=== PATIENT | male | born 1960 | race Caucasian/White ===

== ENCOUNTER 2017-04-23 04:57 | Inpatient (IN) | payer BC, OTHER ==
[2017-03-25 13:25] VITALS: BMI 40.0
--- NOTE | 2017-03-25 14:23 | PAT Medication Instructions ---
Service Date Mar 25, 2017. Current Home Medication List Amoxicillin (Amoxil), 4 CAP PO DIRECTED PRN for dental Aspirin (Aspirin Chewable), 81 MG PO QAM Diphenhydramine Hcl (Benadryl Allergy), 1 CAP PO HS Fish Oil ([place]-3), 1 CAP PO QAM Multiple Vitamins W/ Minerals (Centrum Silver Ultra Mens), 1 TAB PO QAM Simvastatin (Zocor), 20 MG PO QPM Tadalafil (Cialis), 1 TAB PO QAM Medication Instructions For Your Scheduled Surgery - Hold the following medications 2 weeks prior to surgery: Fish Oil ([place]-3), 1 CAP PO QAM -Continue as directed: Amoxicillin (Amoxil), 4 CAP PO DIRECTED PRN for dental - Hold the following medications the morning of surgery: Multiple Vitamins W/ Minerals (Centrum Silver Ultra Mens), 1 TAB PO QAM - Take the following medications the morning of surgery with a sip of water: Aspirin (Aspirin Chewable), 81 MG PO QAM Tadalafil (Cialis), 1 TAB PO QAM - Take the following medications as scheduled the night before surgery: Diphenhydramine Hcl (Benadryl Allergy), 1 CAP PO HS Simvastatin (Zocor), 20 MG PO QPM If you have any questions please call us at [phone] or [phone] or [phone]
--- NOTE | 2017-03-25 14:58 | DIAGNOSTIC IMAGING REPORT ---
CHEST PREADMISSION(PA/LAT) HISTORY: 56 years-old Male PAT preadmission exam. No acute chest complaints. Initial exam. COMPARISON: None available. TECHNIQUE: Frontal and lateral views of the chest. FINDINGS: Cardiac silhouette is upper limits of normal. There is no pneumothorax, pleural effusion or focal airspace consolidation. No overt pulmonary edema. The bones are grossly intact. IMPRESSION: No acute cardiopulmonary process. The above report was generated using voice recognition software. It may contain grammatical, syntax or spelling errors. Electronically signed by: Po Blank M.D. 03/25/2017 2:56 PM Dictated Date/Time: 03/25/2017 2:55 PM
[2017-03-25 15:11] LABS: BASO % 0.2 %; BASO ABS # 0.01 K/uL (0-0.2); COMPLETE YES; EOS % 1.8 %; HEMATOCRIT 44.4 % (42-52); IG% 0.4 %; LYMPH % 31.8 %; LYMPH ABS # 1.78 K/uL (1.2-3.4); MEAN CELL VOLUME 89.3 fL (80-100); MEAN CORPUSCULAR HGB CONC 33.6 g/dl (32-36); MEAN PLATELET VOLUME 8.6 fL (7.4-10.4); MONO % 8.8 %; PLATELET COUNT 206 K/uL (130-400); RED BLOOD COUNT 4.97 M/uL (4.7-6.1); WHITE BLOOD COUNT 5.59 K/uL (4.8-10.8)
[2017-03-25 15:20] LABS: PARTIAL THROMBOPLASTIN RATIO 1.1; PROTHROMBIN TIME (PATIENT) 10.8 SECONDS (9.0-12.0)
[2017-03-25 15:23] LABS: URINE APPEARANCE CLEAR (CLEAR); URINE BILIRUBIN NEG (NEG); URINE COLOR YELLOW; URINE NITRITE NEG (NEG); URINE SPECIFIC GRAVITY 1.016 (1.000-1.030); UROBILINOGEN NEG (NEG); ZZUR CULT IF INDIC CLEAN CATCH NO
[2017-03-25 15:25] LABS: MANUAL MICROSCOPIC REQUIRED? NO; REVIEW REQ? NO
[2017-03-25 15:36] LABS: BUN/CREATININE RATIO 14.6 (10-20); CREATININE 0.67 mg/dl (0.60-1.40); POTASSIUM 3.8 mmol/L (3.5-5.1)
[2017-03-26 05:54] LABS: ESTIMATED AVERAGE GLUCOSE 117 mg/dl; HA1C FLAG Normal (Normal)
--- NOTE | 2017-04-22 19:27 | HISTORY & PHYSICAL EXAMINATION ---
DATE OF ADMISSION: 04/23/2017 ADMISSION HISTORY AND PHYSICAL CHIEF COMPLAINT: Chronic left knee pain. HISTORY OF PRESENT ILLNESS: This is a 56-year-old male patient of Dr. Solo'inez complaining of chronic left knee pain, longstanding, now progressively getting worse. He has failed conservative treatment including intra-articular injections and anti-inflammatories. The patient has increased pain with weightbearing activities and his pain does interfere with his activities of daily living. PAST MEDICAL HISTORY: He was born with a congenital heart disease, heart murmur, heart valve problem, hypercholesterolemia, irregular heartbeat, sleep apnea with the use of CPAP, osteoarthritis, spine problems, neck problems, and obesity. SOCIAL HISTORY: Nonsmoker, nondrinker. FAMILY HISTORY: Noncontributory. REVIEW OF SYSTEMS: The patient complains of chronic left knee pain, otherwise denies any shortness of breath, chest pain, nausea, vomiting or any other joint complaints. PAST SURGICAL HISTORY: Shoulder surgery, knee surgery, back surgery. MEDICATIONS: Simvastatin 20 mg daily at bedtime, Cialis 5 mg daily as needed, aspirin 81 mg daily, amoxicillin only prophylactically for dental work, fish oil 1000 mg daily, Centrum multivitamin daily. ALLERGIES: OXYCODONE WHICH CAUSES puritis PHYSICAL EXAMINATION: GENERAL: Well-developed, well-nourished 56-year-old male in no acute distress. He is alert and oriented x3 and pleasant. HEENT: Normocephalic, atraumatic. Extraocular motions are intact. Pupils are equal and reactive to light. HEART: Regular rate and rhythm with a 1/6 murmur appreciated. LUNGS: Clear. ABDOMEN: Soft and nontender, bowel sounds are present. EXTREMITIES: Left knee reveals medial joint line tenderness with a varus deformity. He has crepitation and pain with passive range of motion. He has limited range of motion of 0-120 degrees. He has 5/5 strength. NEUROLOGIC: Neurovascularly, he is intact in his left lower extremity. DIAGNOSES: Left knee end-stage osteoarthritis. He has a congenital heart problem, heart murmur, heart valve problem, hypercholesterolemia, irregular heartbeat, sleep apnea with the use of CPAP, osteoarthritis, spine problems, neck problems, and obesity. PLAN: The patient was advised of his diagnosis. Indications, risks, benefits, and postop course have all been reviewed. The patient wishes to proceed with a left total knee arthroplasty. Necessary consent forms, preoperative testing and clearances will be obtained. [facility]
[~2017-04-23] VITALS: Ht 167.6 cm; Wt 111.7 kg
[2017-04-23] VITALS (10 sets, daily range): BP systolic 139–169; BP diastolic 74–100; PULSE 61–103; TEMP 36.5–36.8; O2SAT 92–99; Ht 167.6 cm; Wt 111.7 kg
[~2017-04-23 04:57] MED LIST: AMOX500C3 PO; ASPCH81X PO; DIPH25CA65 PO; MULT-618 PO; OMEG10007 PO; SIMV20TA2 PO; TADA5TAB11 PO
[2017-04-23] MEDS ORDERED: METOCLOPRAMIDE HCL 10 MG TAB PO SCH (06:00)
[2017-04-23] MEDS ORDERED: FAMOTIDINE 20 MG TAB PO SCH (06:00)
[2017-04-23] MEDS ORDERED: LACTATED RINGER'S 1000ML 1,000 ML IV SCH (06:00)
[2017-04-23] MEDS ORDERED: ROPIVACAINE 5MG/ML 30 ML 150 MG, BUPIVACAINE/EPINEPHR 0.5% MPF 30 ML, KETOROLAC TROMETH... INFIL SCH ×7 (06:00)
[2017-04-23] MEDS ORDERED: DEXAMETHASONE 4 MG TAB PO SCH (06:00)
[2017-04-23] MEDS ORDERED: GABAPENTIN 300 MG CAP PO SCH (06:00)
[2017-04-23] MEDS ORDERED: CeleBREX 200 MG CAP PO SCH (06:00)
[2017-04-23] MEDS ORDERED: LACTATED RINGER'S 1000ML IV SCH (06:00)
[2017-04-23] MEDS ORDERED: CEFAZOLIN 2000MG IV PUSH 10 ML IV SCH (06:00)
[2017-04-23] MEDS ORDERED: TRANEXAMIC ACID INJ 1,000 MG in SODIUM CHLORIDE 0.9% 100ML 100 ML IV SCH (06:00)
[2017-04-23] MEDS ORDERED: ACETAMINOPHEN 500 MG TAB PO SCH (06:00)
[2017-04-23] MEDS ORDERED: LACTATED RINGER'S 1000ML 500 ML IV ONE (06:00)
[2017-04-23] MEDS ORDERED: BUPIVACAINE 0.5 % 5 MG/1 ML PF 10ML VIAL ONE (06:12)
[2017-04-23] MEDS ORDERED: BUPIVACAINE 0.25% 30 ML VIAL ONE (06:12)
[2017-04-23] MEDS ORDERED: PROMETHAZINE HCL INJ 12.5 MG in SODIUM CHLORIDE 0.9% 50ML 50 ML IV PRN (06:15)
[2017-04-23] MEDS ORDERED: ATROPINE SULFATE 0.1 MG/ML 5ML SYR IV PRN (06:15)
[2017-04-23] MEDS ORDERED: EpHEDrine SULFATE INJ 50 MG/ML AMP IV PRN (06:15)
[2017-04-23] MEDS ORDERED: ONDANSETRON INJ 2 MG/ML 2 ML VIAL IV PRN ×2 (06:15→09:30)
[2017-04-23] MEDS ORDERED: HYDROmorphone INJ 1 MG/ML SYR IV PRN (06:15)
[2017-04-23] MEDS ORDERED: FENTANYL CITRATE INJ 50 MCG/1 ML 2 ML VIAL IV PRN (06:15)
[2017-04-23] MEDS ORDERED: POVIDONE-IODINE OP SOLN 30 ML BTL ONE (06:35)
[2017-04-23] MEDS ORDERED: BACITRACIN 50000 UNIT VIAL ONE (06:35)
[2017-04-23] MEDS ORDERED: ORTHO JOINT ANESTHETIC ONE (06:35)
[2017-04-23] MEDS ORDERED: MIDAZOLAM HCL 1 MG/ML 2ML VIAL ONE (06:42)
--- NOTE | 2017-04-23 06:59 | History & Physical Bridge Note ---
H&P Re-Evaluation Bridge Note: I have examined the patient, reviewed the History & Physical and in the interval since the performance of the History & Physical I have noted the following changes of clinical significance: No changes noted
[2017-04-23] MEDS ORDERED: LIDOCAINE HCL 2% 2 ML VIAL (20MG/ML) ONE (08:44)
[2017-04-23] MEDS ORDERED: PROPOFOL IV EMULSION 10 MG/ML 20 ML VIAL IV ONE (08:44)
--- NOTE | 2017-04-23 09:01 | [facility] Post Operative Brief Note ---
Immediate Operative Summary Operative Date Apr 23, 2017. Pre-Operative Diagnosis Left Knee Degenerative Joint Disease Post-Operative Diagnosis Left Knee Degenerative Joint Disease Procedure(s) Performed Left Total Knee Arthroplasty Surgeon Dr. Solo Billing Rep Surgeon(s) SAM Packer Estimated Blood Loss 5 ml Findings djd oa varus grade 4 medial grade 3 medial patella Specimens A. Left Knee Bone and Tissue Drains 2 hemovac Anesthesia spinal sedation adductor block orthomix Complication(s) None Disposition Recovery Room / PACU
[2017-04-23] MEDS ORDERED: MoRPHine SULFATE 2 MG/ML CARP IV PRN (09:30)
[2017-04-23] MEDS ORDERED: ALUMINUM/MAGNESIUM/SIMETH (MAALOX MAX) 30 ML UDC PO PRN (09:30)
[2017-04-23] MEDS ORDERED: TRAMADOL HCL 50 MG TAB PO PRN (09:30)
[2017-04-23] MEDS ORDERED: TAMSULOSIN HCL 0.4 MG CAP PO PRN (09:30)
[2017-04-23] MEDS ORDERED: MAGNESIUM HYDROXIDE SUSP 30 ML UDC PO PRN (09:30)
[2017-04-23] MEDS ORDERED: BISACODYL 10 MG SUPP PR PRN (09:30)
--- NOTE | 2017-04-23 09:59 | Anesthesiology Progress Note ---
Anesthesia Post Op Note Date & Time Apr 23, 2017 at 09:59 Vital Signs Pain Intensity: 0 Vital Signs Past 12 Hours Date Time Temp Pulse Resp B/P (MAP) Pulse Ox O2 Delivery O2 Flow Rate FiO2 04/23/17 09:50 66 16 144/74 94 Nasal Cannula 2 04/23/17 09:40 70 17 143/78 95 Nasal Cannula 2 04/23/17 09:30 72 22 132/76 99 Oxymask 10 04/23/17 09:24 36.9 70 16 125/70 98 Oxymask 10 04/23/17 05:46 36.5 65 20 166/81 95 Room Air Notes Mental Status: alert / awake / arousable, participated in evaluation Pt Amnestic to Procedure: Yes Nausea / Vomiting: adequately controlled Pain: adequately controlled Airway Patency, RR, SpO2: stable & adequate BP & HR: stable & adequate Hydration State: stable & adequate Neuraxial Anesthesia: was administered, sensory block is resolving Anesthetic Complications: no major complications apparent Doing well. VSS. Pain controlled. Ready for d/c from PACU
--- NOTE | 2017-04-23 10:01 | DIAGNOSTIC IMAGING REPORT ---
TWO VIEWS LEFT KNEE CLINICAL HISTORY: Postoperative examination. FINDINGS: AP and crosstable lateral portable views of the left knee are obtained. A left knee arthroplasty is in near anatomic alignment. There has been undersurface remodeling of the patella. No acute fracture is seen. There are expected postoperative changes around the knee including skin clips, a surgical drain, soft tissue edema, and subcutaneous gas. IMPRESSION: Expected postoperative changes status post left knee arthroplasty. No acute fracture is seen. Electronically signed by: Amado Schuler M.D. 04/23/2017 10:00 AM Dictated Date/Time: 04/23/2017 10:00 AM
[2017-04-23] MEDS ORDERED: MoRPHine SULFATE 4 MG/ML 1 ML CARP\\VIAL IV PRN (10:45)
[2017-04-23] MEDS ORDERED: MoRPHine SULFATE 10 MG/ML CARP/VIAL IV PRN (10:45)
[2017-04-23] MEDS: D5W AND 1/2NSS + 20MEQ KCL 1,000 ML IV SCH ×2 (11:09→20:51)
[2017-04-23] MEDS: KETOROLAC TROMETHAMINE 30 MG/ML VIAL IV. SCH ×2 (11:40→18:41)
--- NOTE | 2017-04-23 11:40 | Medical Consult ---
Consultation Date of Consultation: Apr 23, 2017. Attending Physician: Noé Solo M.D. Reason for Consultation: Post Op Medical Management History of Present Illness 56 year old male who is s/p left TKA today by Dr. Solo. Patient reports increasing knee pain for the past several years. He failed outpatient conservative measures and therefore presented for the planned procedure today. Post operatively the patient is doing well. He reports his pain is well controlled. He reports some mild residual tingling to the BLLE. He denies chest pain and shortness of breath. No lightheadedness or dizziness. He denies abdominal pain and nausea. He reports he has no voided yet since surgery. Past Medical/Surgical History Medical Problems: (1) Aortic regurgitation Status: Chronic (2) HLD (hyperlipidemia) Status: Chronic (3) PEARL on CPAP Status: Chronic Surgical Problems: (1) H/O arthroscopic knee surgery Status: Chronic (2) H/O laminectomy Status: Chronic (3) H/O vasectomy Status: Chronic (4) History of hemorrhoidectomy Status: Chronic (5) S/P rotator cuff repair Status: Chronic Family History Diabetes mellitus FATHER FH: prostate cancer FATHER Social History Smoking Status: Never Smoker Alcohol Use: ~ 5 drinks / week Marital Status: Occupation Status: employed Allergies Coded Allergies: Oxycodone (Verified Adverse Reaction, Unknown, hallucinations, 04/23/17) Home Medications Benadryl Allergy (Diphenhydramine Hcl) 25 Mg Cap 1 Cap PO HS 30 Days Centrum Silver Ultra Mens (Multiple Vitamins W/ Minerals) 1 Tab Tab 1 Tab PO QAM [place]-3 (Fish Oil) 1 Ea Cap 1 Cap PO QAM Amoxil (Amoxicillin) 500 Mg Cap 4 Cap PO DIRECTED PRN 10 Days Aspirin Chewable (Aspirin) 81 Mg Chew 81 Mg PO QAM Cialis (Tadalafil) 5 Mg Tab 1 Tab PO QAM 30 Days Zocor (Simvastatin) 20 Mg Tab 20 Mg PO QPM Current Inpatient Medications Current Inpatient Medications Medications (Trade) Dose Ordered Sig/Jo Route Start Time Stop Time Status Last Admin Dose Admin Simvastatin (Zocor Tab) 20 mg QPM PO 04/23/17 21:00 05/23/17 20:59 Morphine Sulfate (MoRPHine SULFATE INJ) 2 mg Q4HWA PRN IV 04/23/17 09:30 05/07/17 09:29 Potassium Chloride/Dextrose/ Sod Cl 1,000 ml @ 100 mls/hr Q10H IV 04/23/17 11:00 04/24/17 09:28 04/23/17 11:09 100 MLS/HR Cefazolin Sodium 2000 mg/Syringe 10 ml @ 2.5 mls/min Q8H IV 04/23/17 16:00 04/24/17 00:03 Ketorolac Tromethamine (Toradol Inj) 30 mg Q6H IV. 04/23/17 12:00 04/24/17 09:29 Celecoxib (CeleBREX CAP) 200 mg BID PO 04/24/17 21:00 05/24/17 20:59 Acetaminophen/ Hydrocodone Bitart ([place] 5/325 Tab) 1 TABLET FOR PAIN RATING... Q4H PRN PO 04/23/17 09:30 05/07/17 09:29 Magnesium Hydroxide (Milk Of Magnesia Susp) 30 ml Q6H PRN PO 04/23/17 09:30 05/23/17 09:29 Bisacodyl (Dulcolax Supp) 10 mg DAILY PRN NE 04/23/17 09:30 05/23/17 09:29 Senna (Senokot Tab) 17.2 mg HS PO 04/23/17 21:00 05/23/17 20:59 Docusate Sodium (coLACE CAP) 100 mg BID PO 04/23/17 21:00 05/23/17 20:59 Al Hydrox/Mg Hydrox/Simethicone (Maalox Max Susp) 15 ml Q4H PRN PO 04/23/17 09:30 05/23/17 09:29 Multivitamins (Multivitamin Tab) 1 tab QAM PO 04/24/17 09:00 05/24/17 08:59 Ondansetron HCl (Zofran Inj) 4 mg Q6H PRN IV 04/23/17 09:30 05/23/17 09:29 Ferrous Gluconate (Ferrous Gluconate Tab) 324 mg TIDM PO 04/23/17 12:30 05/23/17 12:29 Pantoprazole Sodium (Protonix Tab) 40 mg QAM PO 04/24/17 09:00 05/24/17 08:59 Tamsulosin HCl (Flomax Cap) 0.4 mg QAM PRN PO 04/23/17 09:30 05/23/17 09:29 Tramadol HCl (Ultram Tab) 1 tablet for pain rating... Q4H PRN PO 04/23/17 09:30 05/23/17 09:29 Aspirin (Ecotrin Tab) 81 mg BID PO 04/23/17 21:00 05/23/17 20:59 Morphine Sulfate (MoRPHine SULFATE INJ) 4 mg Q4HWA PRN IV 04/23/17 10:45 05/07/17 10:44 Morphine Sulfate (MoRPHine SULFATE INJ) 6 mg Q4HWA PRN IV 04/23/17 10:45 05/07/17 10:44 Review of Systems ROS per HPI, all other systems reviewed and negative Physical Exam Date Time Temp Pulse Resp B/P (MAP) Pulse Ox O2 Delivery O2 Flow Rate FiO2 04/23/17 11:06 61 16 158/82 (107) 92 Room Air 04/23/17 10:40 64 16 147/80 (102) 96 Room Air 04/23/17 10:00 36.1 65 19 138/76 95 Nasal Cannula 2 04/23/17 09:50 66 16 144/74 94 Nasal Cannula 2 04/23/17 09:40 70 17 143/78 95 Nasal Cannula 2 04/23/17 09:30 72 22 132/76 99 Oxymask 10 04/23/17 09:24 36.9 70 16 125/70 98 Oxymask 10 04/23/17 05:46 36.5 65 20 166/81 95 Room Air General Appearance: WD/WN, no apparent distress Head: normocephalic, atraumatic Eyes: normal inspection, EOMI, sclerae normal ENT: hearing grossly normal, + pertinent finding (moist mucous membranes) Neck: supple, no JVD, trachea midline Respiratory/Chest: lungs clear, normal breath sounds, no respiratory distress Cardiovascular: regular rate, rhythm, no edema, normal peripheral pulses Abdomen/GI: normal bowel sounds, non tender, soft, no organomegaly Extremities/Musculoskelatal: normal capillary refill, no pedal edema, + pertinent finding (s/p left knee surgery, surgical dressing intact, drain in place draining bloody drainage, CSM checks intact to LLE) Neurologic/Psych: no motor/sensory deficits, alert, normal mood/affect, oriented x 3 Skin: normal color, warm/dry Assessment & Plan S/P LEFT TKA - POD#0 - activity and wound care orders as per ortho - pain control with bowel regimen - PT/OT - monitor H/H for acute blood loss anemia and transfuse blood products PRN PEARL ON CPAP - patient declining to use CPAP while hospitalized - discussed with patient that he may need it while utilizing narcotics for pain control - will try nocturnal O2 for now HLD - continue statin - holding fish oil AORTIC REGURGITATION - no acute issues DVT PROPHYLAXIS - ASA 81mg BID per ortho Thank you for this consultation. We will follow the patient with you during their hospital stay. You can reach a member of the [facility] Hospitalist Team 20/01 via pager @ . ADDENDUM: This is a 56 year old male with a PMH of HLD, PEARL on CPAP - presented for L knee TKA Doing well post-operatively No pain Good PO intake No BM yet Denies fevers/chills or any other symptoms PT/OT as per ortho aspirin 81mg BID hold fish oils, monitor H/H
[2017-04-23] MEDS: FERROUS GLUCONATE 324 MG TAB PO SCH ×2 (13:07→18:42)
[2017-04-23] MEDS ORDERED: INFLUENZA VIRUS QUAD VACCINE 0.5 ML SYR IM. ONE (14:45)
[2017-04-23] MEDS ORDERED: INFLUENZA ADMINISTRATION CHARGE ONE (14:45)
[2017-04-23] MEDS: CEFAZOLIN IV 2,000 MG in SYRINGE 0 ML IV SCH (16:19)
--- NOTE | 2017-04-23 19:50 | OPERATIVE REPORT ---
DATE OF OPERATION: 04/23/2017 INDICATION FOR PROCEDURE: The patient is a 56-year-old male who presents with progressive osteoarthritis in both of his knees with the left knee more painful than the right. Radiographs demonstrate he has bilateral knee medial compartment OA. He is clearly bone on bone on the left knee and close to if not bone on bone in the medial compartment on the right knee as well. He has already had previous arthroscopic surgery on the left knee. Now presents for total knee replacement. PREOPERATIVE DIAGNOSIS: End-stage osteoarthritis, left knee. POSTOPERATIVE DIAGNOSIS: Same. PROCEDURE: Left total knee arthroplasty. SURGEON: Dr. Solo. PRESIDING JUDGE: SAM Packer. ANESTHESIA: Spinal adductor nerve block sedation and Orthomix. OPERATIVE PROCEDURE: The patient was taken to the operating room, anesthetized under anesthesia as dictated. He was placed supine on the operating room table. Pneumatic tourniquet was placed in the left upper thigh. Left lower extremity was prepped and draped in sterile fashion. Exam demonstrated that he did not have an effusion. He had scars from previous arthroscopic surgery. He did not have any pseudolaxity medially, had a varus knee and 0 through 120 degrees of range of motion. The left lower extremity was sterilely prepped and draped with ChloraPrep. The leg was elevated, exsanguinated with Esmarch bandage. Pneumatic tourniquet was raised to 325 mmHg. Anterior incision made across the left knee. Skin was incised sharply. The patient did have some thickened prepatellar bursa which was resected. Subcutaneous flaps were elevated. Incision was made through medial retinaculum, extended up in the mid third of the quadriceps tendon, extending down to the medial tibial tubercle. Intraarticular findings demonstrated he had some tricompartmental DJD but mainly medial compartment was bone on bone and some grade 3 medial patellofemoral DJD. I used the [employer] Nephew Journey 2.0 total knee arthroplasty system using [employer] MR templating. He was templated for a 5 femur and 4 tibia, but we sized the tibia for a 5 intraoperatively. The knee was exposed by excising the infrapatellar fat pad, the fat pad over the anterior femur for placement of the component in that area. I released the lateral synovial bands. The cruciate ligaments were resected. He already had a medial meniscectomy performed, so the remainder of the meniscal remnants on the medial side were resected and the lateral meniscus was resected. We had to do medial releases around the medial tibial plateau to balance the ligaments due to tight medial compartment. The femur was exposed. The custom femoral cutting block was pinned in position and the distal femoral cut was made. Then the 5-in-1 cutting block was placed and anterior, posterior and chamfer cuts were made for a size 5 femur. All osteophytes were removed. Then the knee was extended and a subperiosteal peel lateral release was performed around the patella and the patient had an oval patella. So we went ahead with an oval component for the patella. The width was measured and width was reproduced using a freehand cut technique and we used the 32 oval patella, made the drill holes for the patella. The tibia was then exposed and subluxed and the tibial cutting block was pinned in position and the proximal tibial cut was made. Then the tibia was sized for a 5 tibia component. This was externally rotated in line with the tibial tubercle and pinned in position and the punch for the stem was used. Then the 5 implant was centered and inserted fully and then the notch cutting devices were used and the collet was placed. Then we assessed ligamentous balance. There was too much asymmetry with lax lateral collateral ligament ____ the medial side, even for the asymmetrical component being placed. So we went ahead and used the lamina pig breeder and pie crusted the MCL to get better ligamentous balance. At this point, we placed a 13 insert and we tried the high flex insert technique through range of motion and there was a little bit of laxity in flexion of the MCL, but had complete stability in extension side to side, used a constrained component to prevent any mid flexion or flexion instability. The 13 constrained had balanced ligaments through full range of motion. The patella just had a little slight liftoff at the maximum deflexion, so we went ahead and did a lateral release, leaving the synovium intact and then the patella tracked centrally. The trials were removed. The Orthomix anesthetic cocktail was injected per protocol. The knee was copiously irrigated with pulsatile lavage antibiotic solution with bacitracin. Then the final components were cemented with Simplex G cement. The final components were the Mascorro [employer] Nephew Journey 2.0 Oxinium left posterior stabilized 5 femoral component, the 5 tibial component and the 13 constrained polyethylene in the tibia and a 32 oval patella. All cement cured, the Betadine soak was used. The knee was copiously irrigated with antibiotic solution and bacitracin. Two drains were brought out laterally. Then the quadriceps tendon and medial retinaculum were closed with interrupted [id number] #1 Vicryl sutures. Subcutaneous tissues were closed with interrupted 2-0 Vicryl sutures, skin was closed with franca. Sterile dressings were applied. We did do a closure over 2 Hemovac drains which were brought out laterally. The repair was secured through full range of motion. The patient tolerated the procedure well. He had minimal blood loss. SAM Packer was my nurse practitioner physicians assistant. He functioned as nurse practitioner physicians assistant for the entire procedure. He assisted in soft tissue retraction, instrument management and performed the fascial, subcutaneous and skin closure. He will participate in postoperative care of the patient. I attest to the content of the Intraoperative Record and any orders documented therein. Any exceptions are noted below. PADMINI
[2017-04-23] MEDS: SENNA 8.6 MG TAB PO SCH (20:52)
[2017-04-23] MEDS: SIMVASTATIN 20 MG TAB PO SCH (20:52)
[2017-04-23] MEDS: ASPIRIN 81 MG ECTAB PO SCH (20:52)
[2017-04-23] MEDS: DOCUSATE SODIUM 100 MG CAP PO SCH (20:52)
[2017-04-24] VITALS (8 sets, daily range): BP systolic 140–163; BP diastolic 64–85; PULSE 58–94; TEMP 35.7–36.6; O2SAT 95–98
[2017-04-24] MEDS: KETOROLAC TROMETHAMINE 30 MG/ML VIAL IV. SCH ×2 (00:20→05:52)
[2017-04-24] MEDS: CEFAZOLIN IV 2,000 MG in SYRINGE 0 ML IV SCH (00:30)
[2017-04-24] MEDS: D5W AND 1/2NSS + 20MEQ KCL 1,000 ML IV SCH (05:52)
[2017-04-24 07:25] LABS: BUN/CREATININE RATIO 11.6 (10-20); CALCIUM 8.2 mg/dl (8.5-10.1); CREATININE 0.75 mg/dl (0.60-1.40); POTASSIUM 4.1 mmol/L (3.5-5.1)
[2017-04-24 07:33] LABS: HEMATOCRIT 37.6 % (42-52); MEAN CELL VOLUME 89.5 fL (80-100); MEAN CORPUSCULAR HGB CONC 34.6 g/dl (32-36); PLATELET COUNT 185 K/uL (130-400); WHITE BLOOD COUNT 13.63 K/uL (4.8-10.8)
[2017-04-24] MEDS: FERROUS GLUCONATE 324 MG TAB PO SCH ×3 (08:33→17:41)
[2017-04-24] MEDS: DOCUSATE SODIUM 100 MG CAP PO SCH ×2 (08:34→21:26)
[2017-04-24] MEDS: ASPIRIN 81 MG ECTAB PO SCH ×2 (08:34→21:26)
[2017-04-24] MEDS: MULTIVITAMIN TAB PO SCH (08:34)
[2017-04-24] MEDS: PANTOprazole SOD 40 MG TAB PO SCH (08:34)
--- NOTE | 2017-04-24 09:30 | Orthopedic Progress Note ---
Orthopedic Progress Note Date of Service Apr 24, 2017. Subjective Post OP Day: 1 Reports: feeling well, pain controlled w PO medications, Denies: complaints, chest pain, SOB, nausea / vomiting, light headedness, calf pain Objective calves soft nontender, N/V intact, capillary refill less than 2 sec., dressing C /D/I, A&O x3, toes mobile Date Time Temp Pulse Resp B/P (MAP) Pulse Ox O2 Delivery O2 Flow Rate FiO2 04/24/17 07:29 36.4 63 16 147/81 (103) 98 Room Air 04/24/17 07:10 Room Air 04/24/17 03:30 36.6 94 18 146/83 (104) 95 Room Air 04/24/17 00:20 Room Air 04/23/17 23:00 36.7 84 20 139/87 (104) 99 Room Air 04/23/17 19:31 157/79 (105) 04/23/17 19:27 36.8 97 18 140/100 (113) 93 Room Air 04/23/17 15:54 88 148/79 (102) 04/23/17 15:32 36.6 103 18 169/83 (111) 94 Room Air 04/23/17 15:20 Room Air 04/23/17 13:02 36.6 78 19 165/74 (104) 94 Nasal Cannula 2.0 04/23/17 11:06 61 16 158/82 (107) 92 Room Air 04/23/17 10:40 64 16 147/80 (102) 96 Room Air 04/23/17 10:10 36.6 65 18 144/81 (102) 95 Nasal Cannula 2.0 04/23/17 10:10 95 Nasal Cannula 2.0 04/23/17 10:10 Nasal Cannula 2.0 04/23/17 10:00 36.1 65 19 138/76 95 Nasal Cannula 2 04/23/17 09:50 66 16 144/74 94 Nasal Cannula 2 04/23/17 09:40 70 17 143/78 95 Nasal Cannula 2 04/23/17 09:30 72 22 132/76 99 Oxymask 10 Laboratory Results 24 Hours: Test 04/24/17 06:16 Hematocrit 37.6 % Hemoglobin 13.0 g/dL Assessment & Plan Assessment: POD #1, Left TKA Inhouse Planning Pain Management: Celebrex, [place], Morphine, PO Tylenol DVT Prophylaxis: TEDs, SCDs, ASA Discharge Planning Discharge Planning: home with oppt Pain Management: Celebrex, [place], PO Tylenol DVT Prophylaxis: TEDs, ASA Therapy: Physical Therapy, Occupational Therapy
--- NOTE | 2017-04-24 11:59 | Progress Note ---
Subjective Date of Service: Apr 24, 2017. Subjective Pt evaluation today including: conversation w/ patient, physical exam, lab review, review of studies, review of inpatient medication list Saw/examined the patient in room 307 He is doing well Denies pain, no nausea/vomiting No other issues to note Had a BM, and good PO intake Review of Systems Constitutional: No fever, No chills Abdomen: No nausea, No vomiting, No diarrhea, No constipation Musculoskeletal: No joint pain Medications Current Inpatient Medications Medications (Trade) Dose Ordered Sig/Jo Route Start Time Stop Time Status Last Admin Dose Admin Simvastatin (Zocor Tab) 20 mg QPM PO 04/23/17 21:00 05/23/17 20:59 04/23/17 20:52 20 MG Morphine Sulfate (MoRPHine SULFATE INJ) 2 mg Q4HWA PRN IV 04/23/17 09:30 05/07/17 09:29 Celecoxib (CeleBREX CAP) 200 mg BID PO 04/24/17 21:00 05/24/17 20:59 Acetaminophen/ Hydrocodone Bitart ([place] 5/325 Tab) 1 TABLET FOR PAIN RATING... Q4H PRN PO 04/23/17 09:30 05/07/17 09:29 Magnesium Hydroxide (Milk Of Magnesia Susp) 30 ml Q6H PRN PO 04/23/17 09:30 05/23/17 09:29 Bisacodyl (Dulcolax Supp) 10 mg DAILY PRN [place] 04/23/17 09:30 05/23/17 09:29 Senna (Senokot Tab) 17.2 mg HS PO 04/23/17 21:00 05/23/17 20:59 04/23/17 20:52 17.2 MG Docusate Sodium (coLACE CAP) 100 mg BID PO 04/23/17 21:00 05/23/17 20:59 04/24/17 08:34 100 MG Al Hydrox/Mg Hydrox/Simethicone (Maalox Max Susp) 15 ml Q4H PRN PO 04/23/17 09:30 05/23/17 09:29 Multivitamins (Multivitamin Tab) 1 tab QAM PO 04/24/17 09:00 05/24/17 08:59 04/24/17 08:34 1 TAB Ondansetron HCl (Zofran Inj) 4 mg Q6H PRN IV 04/23/17 09:30 05/23/17 09:29 Ferrous Gluconate (Ferrous Gluconate Tab) 324 mg TIDM PO 04/23/17 12:30 05/23/17 12:29 04/24/17 08:33 324 MG Pantoprazole Sodium (Protonix Tab) 40 mg QAM PO 04/24/17 09:00 05/24/17 08:59 04/24/17 08:34 40 MG Tamsulosin HCl (Flomax Cap) 0.4 mg QAM PRN PO 04/23/17 09:30 05/23/17 09:29 Tramadol HCl (Ultram Tab) 1 tablet for pain rating... Q4H PRN PO 04/23/17 09:30 05/23/17 09:29 04/24/17 08:39 100 MG Aspirin (Ecotrin Tab) 81 mg BID PO 04/23/17 21:00 05/23/17 20:59 04/24/17 08:34 81 MG Morphine Sulfate (MoRPHine SULFATE INJ) 4 mg Q4HWA PRN IV 04/23/17 10:45 05/07/17 10:44 Morphine Sulfate (MoRPHine SULFATE INJ) 6 mg Q4HWA PRN IV 04/23/17 10:45 05/07/17 10:44 Objective Vital Signs Date Time Temp Pulse Resp B/P (MAP) Pulse Ox O2 Delivery O2 Flow Rate FiO2 04/24/17 11:46 36.4 66 16 146/83 (104) 98 Room Air 04/24/17 07:29 36.4 63 16 147/81 (103) 98 Room Air 04/24/17 07:10 Room Air 04/24/17 03:30 36.6 94 18 146/83 (104) 95 Room Air 04/24/17 00:20 Room Air 04/23/17 23:00 36.7 84 20 139/87 (104) 99 Room Air 04/23/17 19:31 157/79 (105) 04/23/17 19:27 36.8 97 18 140/100 (113) 93 Room Air 04/23/17 15:54 88 148/79 (102) 04/23/17 15:32 36.6 103 18 169/83 (111) 94 Room Air 04/23/17 15:20 Room Air 04/23/17 13:02 36.6 78 19 165/74 (104) 94 Nasal Cannula 2.0 Physical Exam General Appearance: no apparent distress Respiratory/Chest: no respiratory distress, no accessory muscle use Extremities: + pertinent finding (drain in place; L knee wrapped) Laboratory Results Last 24 Hours Test 04/24/17 06:16 White Blood Count 13.63 K/uL Red Blood Count 4.20 M/uL Hemoglobin 13.0 g/dL Hematocrit 37.6 % Mean Corpuscular Volume 89.5 fL Mean Corpuscular Hemoglobin 31.0 pg Mean Corpuscular Hemoglobin Concent 34.6 g/dl RDW Standard Deviation 43.0 fL RDW Coefficient of Variation 13.2 % Platelet Count 185 K/uL Mean Platelet Volume 9.0 fL Sodium Level 139 mmol/L Potassium Level 4.1 mmol/L Chloride Level 106 mmol/L Carbon Dioxide Level 24 mmol/L Anion Gap 8.0 mmol/L Blood Urea Nitrogen 9 mg/dl Creatinine 0.75 mg/dl Est Creatinine Clear Calc Drug Dose 127.5 ml/min Estimated GFR () 118.0 Estimated GFR (Non- 101.8 BUN/Creatinine Ratio 11.6 Random Glucose 138 mg/dl Calcium Level 8.2 mg/dl Assessment and Plan S/P LEFT TKA 04/24 POD #1 ambulating well pain controlled had a BM monitor H/H drain to be removed in AM as per ortho likely d/c home in AM 04/23 - POD#0 - activity and wound care orders as per ortho - pain control with bowel regimen - PT/OT - monitor H/H for acute blood loss anemia and transfuse blood products PRN PEARL ON CPAP - patient declining to use CPAP while hospitalized - discussed with patient that he may need it while utilizing narcotics for pain control - will try nocturnal O2 for now HLD - continue statin - holding fish oil AORTIC REGURGITATION - no acute issues DVT PROPHYLAXIS - ASA 81mg BID per ortho Thank you for this consultation. We will follow the patient with you during their hospital stay. You can reach a member of the [facility] Hospitalist Team 20/01 via pager @ [phone].
[2017-04-24] MEDS: HYDROCODONE/ACETAMOPHEN 5/325MG TAB PO PRN ×3 (12:25→22:17)
[2017-04-24] MEDS: CeleBREX 200 MG CAP PO SCH (21:26)
[2017-04-24] MEDS: SIMVASTATIN 20 MG TAB PO SCH (21:26)
[2017-04-24] MEDS: SENNA 8.6 MG TAB PO SCH (21:27)
[2017-04-25] MEDS: HYDROCODONE/ACETAMOPHEN 5/325MG TAB PO PRN ×3 (02:27→12:34)
[2017-04-25 05:55] LABS: HEMATOCRIT 35.9 % (42-52); MEAN CELL VOLUME 89.8 fL (80-100); MEAN CORPUSCULAR HEMOGLOBIN 30.8 pg (25-34); MEAN CORPUSCULAR HGB CONC 34.3 g/dl (32-36); MEAN PLATELET VOLUME 8.5 fL (7.4-10.4); PLATELET COUNT 161 K/uL (130-400); WHITE BLOOD COUNT 7.58 K/uL (4.8-10.8)
[2017-04-25 06:46] VITALS: BP 171/82; PULSE 68; TEMP 36.6; O2SAT 95
[2017-04-25] MEDS: FERROUS GLUCONATE 324 MG TAB PO SCH ×2 (07:38→12:33)
[2017-04-25] MEDS: CeleBREX 200 MG CAP PO SCH (07:39)
[2017-04-25] MEDS: MULTIVITAMIN TAB PO SCH (07:39)
[2017-04-25] MEDS: DOCUSATE SODIUM 100 MG CAP PO SCH (07:39)
[2017-04-25] MEDS: ASPIRIN 81 MG ECTAB PO SCH (07:39)
[2017-04-25] MEDS: PANTOprazole SOD 40 MG TAB PO SCH (07:40)
--- NOTE | 2017-04-25 07:58 | Orthopedic Progress Note ---
Orthopedic Progress Note Date of Service Apr 25, 2017. Subjective Post OP Day: 2 Reports: feeling well, pain controlled w PO medications, Denies: complaints, chest pain, SOB, nausea / vomiting, light headedness, calf pain Objective calves soft nontender, N/V intact, capillary refill less than 2 sec., dressing C /D/I, A&O x3, toes mobile Date Time Temp Pulse Resp B/P (MAP) Pulse Ox O2 Delivery O2 Flow Rate FiO2 04/25/17 06:46 36.6 68 16 171/82 (111) 95 Room Air 04/24/17 23:50 Room Air 04/24/17 22:56 36.5 60 16 152/67 (95) 97 Room Air 04/24/17 20:40 35.7 64 20 146/64 (91) 96 Room Air 04/24/17 20:37 96 Room Air 04/24/17 16:10 Room Air 04/24/17 15:24 36.4 58 20 163/85 (111) 96 Room Air 04/24/17 11:46 36.4 66 16 146/83 (104) 98 Room Air Laboratory Results 24 Hours: Test 04/25/17 05:46 Hematocrit 35.9 % Hemoglobin 12.3 g/dL Assessment & Plan Assessment: POD #2, Left TKA Plan: PT/ OT DVT proph- ASA D/C planning- Home w OPPT today. As per medicine Inhouse Planning Pain Management: Celebrex, [place], Morphine, PO Tylenol DVT Prophylaxis: TEDs, SCDs, ASA Discharge Planning Discharge Planning: home with oppt Pain Management: Celebrex, [place], PO Tylenol DVT Prophylaxis: TEDs, ASA Therapy: Physical Therapy, Occupational Therapy
[2017-04-25] MEDS ORDERED: ASPCH81X PO (08:01)
[2017-04-25] MEDS ORDERED: SNK PO (08:01)
[2017-04-25] MEDS ORDERED: HYDR-5688 PO (08:01)
[2017-04-25] MEDS ORDERED: ONDA8TAB6 PO (08:01)
[2017-04-25] MEDS ORDERED: CLB200 PO (08:01)
--- NOTE | 2017-04-25 08:03 | Discharge Instructions ---
Discharge Instructions Date of Service Apr 25, 2017. Admission Reason for Admission: Left Knee Degenerative Joint Disease Discharge Discharge Diagnosis / Problem: sp left TKA Discharge Goals Goal(s): Decrease discomfort, Improve function, Increase independence Activity Recommendations Activity Limitations: per Instructions/Follow-up section . Instructions / Follow-Up Instructions / Follow-Up ACTIVITY RECOMMENDATIONS: SELF CARE INSTRUCTIONS AFTER TOTAL KNEE REPLACEMENT A. You may need to continue a physical therapy program after discharge from the hospital. There are several options available to you. Your doctor will assist you in selecting the best one for you. 1. An out-patient facility 2 to 3 times a week for therapy or home therapy. 2. Continue working on all exercises taught to you in the hospital. Your goals should be to increase bending of your knee to 90 degrees and beyond and to fully straighten your knee. B. You may progress at your own pace from walking with a walker or crutches to a cane; then to no assistive devices. C. Make walking a part of your daily routine. Be up as much as comfortable with rest periods throughout the day. Rest with leg elevation is very important. Use the ice wrap frequently for the first 3-4 weeks. D. There are no restrictions on activities. You may ride in a car, shop, participate in produce service team member and all social activities. E. Wear the long elastic stockings (GILLIAN hose) 20 hours a day for 2 weeks after surgery. They can be removed several times a day for laundering and for a bath. F. You may shower, no tub baths until cleared by your doctor. SPECIAL CARE INSTRUCTIONS: VERY IMPORTANT TO READ AND REVIEW A. There are a few signs you need to watch for after you are home. Call [facility] if you notice any of the followin. Increased severe knee pain. Some pain is expected especially when you exercise. 2. Increased swelling in your leg or knee; pain or swelling of the calf muscle in either lower leg. 3. Any fluid drainage from the incision. 4. Shortness of breath or chest pain. B. Please call [facility] at if you have any concerns or questions about your operation or recovery. The doctor or his nurse will return your call promptly. C. You must take antibiotics before dental work, bladder, bowel or other surgery. Your doctor will provide you with a permanent care to carry describing this precaution. IMPORTANT: * REMEMBER TO TAKE ASPIRIN, 81 MG, TWICE DAILY FOR 4 WEEKS UNLESS OTHERWISE DIRECTED. THIS IS YOUR BLOOD THINNER. * HIGH RISK PATIENTS MAY BE PRESCRIBED A STRONGER BLOOD THINNER. THIS WILL BE PROVIDED AT DISCHARGE. * CALL IF INCREASED PAIN, REDNESS, DRAINAGE OR FEVER GREATER THAT 101. * WEAR GILLIAN HOSE 20 HOURS PER DAY FOR 2 WEEKS. * YOU MAY HAVE A LARGE BAND-AID LIKE DRESSING (SILVERON). THIS WILL REMAIN ON YOUR INCISION FOR 7 DAYS, THEN CAN BE REMOVED. IF INCISION IS LEAKING THROUGH DRESSING, CALL THE OFFICE . FOLLOW UP VISIT: If appointment is not already scheduled: Please call [facility] to make a follow-up appointment for 2 weeks after your surgery at . Current Hospital Diet Patient's current hospital diet: Regular Diet Discharge Diet Recommended Diet: Regular Diet Procedures Procedures Performed: Left Total Knee Arthroplasty Pending Studies Studies pending at discharge: no Laboratory Results Hemoglobin A1c Test 03/25/17 14:34 Range/Units Estimated Average Glucose 117 mg/dl Hemoglobin A1c 5.7 H 4.5-5.6 % Medical Emergencies . Who to Call and When: Medical Emergencies: If at any time you feel your situation is an emergency, please call 911 immediately. . Non-Emergent Contact Non-Emergency issues call your: Surgeon . "Provider Documentation" section prepared by Carisa Mansfield. . VTE Core Measure Inpt VTE Proph given/why not?: Other Anticoagulation, T.E.D. Stockings, SCD's [place] Drug Monitoring Program Search Results: patient reviewed within database, no issues identified
[2017-04-25 08:28] VITALS: O2SAT 95
[2017-04-25 09:14] VITALS: BP 171/82; PULSE 68; TEMP 36.6; O2SAT 95
--- NOTE | 2017-04-29 09:59 | DISCHARGE SUMMARY ---
DISCHARGE DIAGNOSIS: Degenerative joint disease, left knee. 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 CONSULTS: BRYNN David and Bj Sims DO COMPLICATIONS: None. PROCEDURES: Left total knee arthroplasty performed by Dr. Solo on 04/23/2017. BRIEF HISTORY: As dictated in the history and physical. HOSPITAL SUMMARY: The patient was admitted on the above-noted date and had the above-noted surgery performed, which the patient tolerated well. On the first postoperative day, he was feeling well. Pain was controlled. Calves were soft, nontender, neurovascularly intact. Dressings were clean, dry and intact. Toes were mobile. Hemoglobin was 13.0. Vital signs were stable. He was afebrile and he was started on physical therapy protocol and continued on DVT prophylaxis and pain management. By his second postoperative day, he was feeling well and pain was controlled. Calves were soft, nontender, neurovascularly intact and dressings were clean, dry and intact. Toes were mobile. Hemoglobin was 12.3. He was progressing with his physical therapy and remaining medically stable and it was felt he could be discharged to home on 04/25/2017. For further review, please see chart. LAB AND X-RAY DATA: As per chart. DISCHARGE INSTRUCTIONS: The patient was discharged to home in satisfactory condition on 04/25/2017. DIET: Regular. ACTIVITY: Follow TK instruction sheets and special care instructions as noted. Follow up with Dr. Solo in 2 weeks. The patient is to call for an appointment if one has not been made for you. DISCHARGE MEDICATIONS: Celebrex 200 mg p.o. b.i.d., [place] 5/325 one to two tabs p.o. q. 4 hours p.r.n., Zofran 8 mg p.o. q. 8 hours p.r.n. nausea, and senna 17.2 mg p.o. at bedtime. Resume home meds as listed.
== END 2017-04-25 14:50 | disposition home or self-care (01) | DRG 470 ==
LOC: C.ACU 04:57 → C.3E 06:08 → ENRESERV 09:57
PROVIDERS: ADMIT Orthopaedic Surgery Sports Medicine; ATTEND Orthopaedic Surgery Sports Medicine
PROC: 0SRD0J9 Replacement of Left Knee Joint with Synthetic Substitute, Cemented, Open Approach (ICD-10-PCS; principal; 2017-04-23 07:00)
DX: M17.0 Bilateral primary osteoarthritis of knee (principal); Q23.1 Congenital insufficiency of aortic valve; E78.00 Pure hypercholesterolemia, unspecified; G47.33 Obstructive sleep apnea (adult) (pediatric); E78.5 Hyperlipidemia, unspecified; E66.9 Obesity, unspecified; Z79.899 Other long term (current) drug therapy; Z79.82 Long term (current) use of aspirin; Z68.39 Body mass index [BMI] 39.0-39.9, adult; Z83.3 Family history of diabetes mellitus; Z80.42 Family history of malignant neoplasm of prostate

== ENCOUNTER 2017-07-30 05:28 | Inpatient (IN) | payer BC ==
[2017-07-01 15:38] LABS: BASO % 0.6 %; BASO ABS # 0.04 K/uL (0-0.2); EOS % 1.8 %; EOS ABS # 0.12 K/uL (0-0.5); HEMATOCRIT 42.9 % (42-52); HEMOGLOBIN 14.6 g/dL (14.0-18.0); IG# 0.01 K/uL (0.00-0.02); LYMPH % 26.4 %; LYMPH ABS # 1.81 K/uL (1.2-3.4); MEAN CELL VOLUME 87.9 fL (80-100); MEAN CORPUSCULAR HEMOGLOBIN 29.9 pg (25-34); MEAN PLATELET VOLUME 8.9 fL (7.4-10.4); MONO % 8.9 %; MONO ABS # 0.61 K/uL (0.11-0.59); NEUT % 62.2 %; NEUT ABS # 4.26 K/uL (1.4-6.5); PLATELET COUNT 215 K/uL (130-400); RED CELL DISTRIBUTION WIDTH CV 13.8 % (11.5-14.5); RED CELL DISTRIBUTION WIDTH SD 43.9 fL (36.4-46.3); WHITE BLOOD COUNT 6.85 K/uL (4.8-10.8)
[2017-07-01 15:44] LABS: PTT PATIENT 27.5 SECONDS (21.0-31.0)
[2017-07-01 16:25] VITALS: Ht 167.6 cm; Wt 111.4 kg
[2017-07-01 17:40] LABS: ALBUMIN 4.1 gm/dl (3.4-5.0); CALCIUM 9.1 mg/dl (8.5-10.1); CREATININE 0.78 mg/dl (0.60-1.40); POTASSIUM 3.8 mmol/L (3.5-5.1)
[2017-07-02 06:13] LABS: HEMOGLOBIN A1C 5.5 % (4.5-5.6)
--- NOTE | 2017-07-29 20:14 | HISTORY & PHYSICAL EXAMINATION ---
DATE OF ADMISSION: 07/30/2017 CHIEF COMPLAINT: Chronic right knee pain. HISTORY OF PRESENT ILLNESS: This is a 56-year-old male patient of Dr. Solo'inez complaining of chronic right knee pain, longstanding, now progressively getting worse. The patient has failed conservative treatment including anti-inflammatories, intra-articular injections and the use of a cane. The patient has been diagnosed with end-stage osteoarthritis in his right knee, per clinical and radiographic exams. The patient has increased pain with weightbearing activities and his pain does interfere with his activities of daily living. PAST MEDICAL HISTORY: Heart valve problem, sleep apnea with the use of CPAP, obesity. SOCIAL HISTORY: Nonsmoker, occasional drinker. PAST SURGICAL HISTORY: Knee surgery, back surgery. FAMILY HISTORY: Noncontributory. REVIEW OF SYSTEMS: The patient complains of chronic right knee pain, otherwise denies any shortness of breath, chest pain, nausea, vomiting or any other joint complaints. FAMILY HISTORY: Noncontributory. MEDICATIONS: Simvastatin 20 mg daily, Cialis 5 mg as needed, multivitamin daily, fish oil daily, aspirin 81 mg daily. ALLERGIES: INCLUDE OXYCODONE. PHYSICAL EXAMINATION: GENERAL: Well-developed, well-nourished 56-year-old male patient in no acute distress. He is alert and oriented x3 and pleasant. HEENT: Normocephalic, atraumatic. Extraocular motions are intact. Pupils are equal and reactive to light. HEART: Regular rate and rhythm, no murmurs appreciated. LUNGS: Clear. ABDOMEN: Soft, nontender, bowel sounds present. EXTREMITIES: Right knee reveals a varus deformity. He has a limited range of motion of 0-125 degrees. He has a mild effusion. He has medial joint line tenderness with crepitation. He has 5/5 strength. Neurologically and neurovascularly he is intact in his right lower extremity. DIAGNOSES: Right knee end-stage osteoarthritis with a history of heart valve problem, sleep apnea with the use of CPAP, osteoarthritis, obesity. PLAN: The patient was advised of his diagnoses. Indications, risks, benefits, and postop course have all been reviewed. The patient wishes to proceed with a right total knee arthroplasty. Necessary consent forms, preoperative testing and clearances will be obtained.
[2017-07-30] VITALS (9 sets, daily range): BP systolic 130–161; BP diastolic 71–90; PULSE 62–99; TEMP 36.4–36.8; O2SAT 93–96
[~2017-07-30] VITALS: Ht 167.6 cm; Wt 111.4 kg
[~2017-07-30 05:28] MED LIST changes: +CLB/200 PO; -DIPH25CA65 PO
[2017-07-30] MEDS ORDERED: ROPIVACAINE 5MG/ML 30 ML 150 MG, BUPIVACAINE 0.5% MPF INJ 30 ML, EpINEphrine HCL INJ 0.... INFIL SCH ×8 (06:00)
[2017-07-30] MEDS ORDERED: METOCLOPRAMIDE HCL 10 MG TAB PO SCH (06:00)
[2017-07-30] MEDS ORDERED: ACETAMINOPHEN 500 MG TAB PO SCH (06:00)
[2017-07-30] MEDS ORDERED: CEFAZOLIN 2000MG IV PUSH 10 ML IV SCH (06:00)
[2017-07-30] MEDS ORDERED: CeleBREX 200 MG CAP PO SCH (06:00)
[2017-07-30] MEDS ORDERED: LACTATED RINGER'S 1000ML IV SCH (06:00)
[2017-07-30] MEDS ORDERED: LACTATED RINGER'S 1000ML 500 ML IV SCH (06:00)
[2017-07-30] MEDS ORDERED: TRANEXAMIC ACID INJ 1,000 MG in SYRINGE 0 ML IV SCH (06:00)
[2017-07-30] MEDS ORDERED: GABAPENTIN 300 MG CAP PO SCH (06:00)
[2017-07-30] MEDS ORDERED: FAMOTIDINE 20 MG TAB PO SCH (06:00)
[2017-07-30] MEDS ORDERED: DEXAMETHASONE 4 MG TAB PO SCH (06:00)
[2017-07-30] MEDS ORDERED: LACTATED RINGER'S 1000ML 1,000 ML IV SCH ×2 (06:00)
[2017-07-30] MEDS ORDERED: BUPIVACAINE 0.5 % 5 MG/1 ML PF 10ML VIAL ONE (06:28)
[2017-07-30] MEDS ORDERED: BUPIVACAINE 0.25% 30 ML VIAL ONE (06:28)
[2017-07-30] MEDS ORDERED: MIDAZOLAM HCL 1 MG/ML 2ML VIAL ONE ×2 (06:45→08:40)
[2017-07-30] MEDS ORDERED: FENTANYL CITRATE INJ 50 MCG/1 ML 2 ML VIAL ONE (06:45)
[2017-07-30] MEDS ORDERED: ORTHO JOINT ANESTHETIC ONE (06:56)
[2017-07-30] MEDS ORDERED: BACITRACIN 50000 UNIT VIAL ONE (06:57)
[2017-07-30] MEDS ORDERED: POVIDONE-IODINE OP SOLN 30 ML BTL ONE (06:57)
[2017-07-30] MEDS ORDERED: ONDANSETRON INJ 2 MG/ML 2 ML VIAL IV PRN ×2 (07:15→09:45)
[2017-07-30] MEDS ORDERED: EpHEDrine SULFATE INJ 50 MG/ML AMP IV PRN (07:15)
[2017-07-30] MEDS ORDERED: FENTANYL CITRATE INJ 50 MCG/1 ML 2 ML VIAL IV PRN (07:15)
[2017-07-30] MEDS ORDERED: ATROPINE SULFATE 0.1 MG/ML 5ML SYR IV PRN (07:15)
[2017-07-30] MEDS ORDERED: LIDOCAINE HCL 2% 2 ML VIAL (20MG/ML) ONE (08:27)
[2017-07-30] MEDS ORDERED: PROPOFOL IV EMULSION 10 MG/ML 20 ML VIAL IV ONE ×2 (08:27→09:08)
[2017-07-30] MEDS ORDERED: BISACODYL 10 MG SUPP PR PRN (09:45)
[2017-07-30] MEDS ORDERED: CEFAZOLIN IV 2,000 MG in DEXTROSE 5% 50ML 50 ML IV SCH (09:45)
[2017-07-30] MEDS ORDERED: METOCLOPRAMIDE HCL INJ 5 MG/ML 2 ML VIAL IV PRN (09:45)
[2017-07-30] MEDS ORDERED: ACETAMINOPHEN 325 MG TAB PO PRN (09:45)
[2017-07-30] MEDS ORDERED: SOD PHOSPHATE/SOD BIPHOSPHATE ENEMA 132 ML BTL PR PRN (09:45)
[2017-07-30] MEDS ORDERED: MoRPHine SULFATE 2 MG/ML CARP IV PRN (09:45)
[2017-07-30] MEDS ORDERED: MAGNESIUM HYDROXIDE SUSP 30 ML UDC PO PRN (09:45)
--- NOTE | 2017-07-30 09:53 | [facility] Post Operative Brief Note ---
Immediate Operative Summary Operative Date Jul 30, 2017. Pre-Operative Diagnosis Right Knee End-Stage Osteoarthritis Post-Operative Diagnosis Right Knee End-Stage Osteoarthritis Procedure(s) Performed Right Total Knee Arthroplasty, Cemented Surgeon Dr. Solo Pattern Grader Supervisor Surgeon(s) Hardeep Squires PA-C Estimated Blood Loss 5 mL Findings Consistent with Post-Op Diagnosis Specimens A: Right Knee Bone and Tissue Drains 2 hemovac Anesthesia Type MAC Spinal Regional Complication(s) none Disposition Disposition: Recovery Room / PACU
--- NOTE | 2017-07-30 10:15 | DIAGNOSTIC IMAGING REPORT ---
RIGHT KNEE 2 VIEWS CLINICAL HISTORY: Degenerative arthritis. Postoperative study. COMPARISON: None. DISCUSSION: There are postsurgical changes of a total right knee arthroplasty and patellar resurfacing. The femoral and tibial components appear well seated. Overlying skin franca and surgical drains are evident. There is air within the soft tissues consistent with recent surgery. IMPRESSION: Postsurgical changes of a total right knee arthroplasty. Electronically signed by: Sage Borden M.D. 07/30/2017 10:14 AM Dictated Date/Time: 07/30/2017 10:13 AM
--- NOTE | 2017-07-30 10:17 | Anesthesiology Progress Note ---
Anesthesia Post Op Note Date & Time Jul 30, 2017 at 10:16 Vital Signs Pain Intensity: 0 Vital Signs Past 12 Hours Date Time Temp Pulse Resp B/P (MAP) Pulse Ox O2 Delivery O2 Flow Rate FiO2 07/30/17 10:10 72 16 126/70 94 Nasal Cannula 2 07/30/17 10:00 74 13 131/70 95 Nasal Cannula 2 07/30/17 09:50 76 14 126/67 98 Oxymask 10 07/30/17 09:40 37.3 76 16 113/65 96 Oxymask 10 07/30/17 05:51 36.5 73 20 161/84 95 Room Air Notes Mental Status: alert / awake / arousable, participated in evaluation Pt Amnestic to Procedure: Yes Nausea / Vomiting: adequately controlled Pain: adequately controlled Airway Patency, RR, SpO2: stable & adequate BP & HR: stable & adequate Hydration State: stable & adequate Neuraxial Anesthesia: was administered, sensory block is resolving Anesthetic Complications: no major complications apparent
--- NOTE | 2017-07-30 11:36 | Medical Consult ---
Consultation Date of Consultation: Jul 30, 2017. Attending Physician: Noé Solo M.D. Reason for Consultation: post-op medical management History of Present Illness Pt is 56 y/o M with PMH hyperlipidemia, PEARL on cpap, BPH, mild-moderate aortic regurgitation s/p R TKA by Dr Solo today. Is doing well post op. Denies any pain, states still some tingling sensation to LE. Hasn't urinated or had BM after surgery yet. Denies nausea or vomiting. Is drinking fluids well. Denies fever/chills, diaphoresis, RUSSELL, dizziness, vision changes, neck pain, CP, SOB, palpitations, cough, sore throat, choking, abdominal pain, rashes. Past Medical/Surgical History Medical Problems: (1) Aortic regurgitation Status: Chronic (2) HLD (hyperlipidemia) Status: Chronic (3) PEARL on CPAP Status: Chronic Surgical Problems: (1) H/O arthroscopic knee surgery Status: Chronic (2) H/O laminectomy Status: Chronic (3) H/O vasectomy Status: Chronic (4) History of hemorrhoidectomy Status: Chronic (5) History of left knee replacement Status: Resolved (6) S/P rotator cuff repair Status: Chronic Family History Diabetes mellitus FATHER FH: prostate cancer FATHER Social History Smoking Status: Never Smoker Smokeless Tobacco Use: No Alcohol Use: socially (2 beers, 1 mixed drink twice a week) Drug Use: none Marital Status: Housing Status: lives with significant other Occupation Status: employed Allergies Coded Allergies: Oxycodone (Verified Adverse Reaction, Mild, "BUGS CRAWLING", 07/30/17) Current Inpatient Medications Current Inpatient Medications Medications (Trade) Dose Ordered Sig/Jo Route Start Time Stop Time Status Last Admin Dose Admin Lactated Ringer's 1,000 ml @ 60 mls/hr [id number] IV 07/30/17 06:00 07/30/17 22:39 Lactated Ringer's 1,000 ml @ 15 mls/hr Q24H IV 07/30/17 06:00 07/31/17 05:59 07/30/17 06:21 15 MLS/HR Cefazolin Sodium 10 ml @ 2.5 mls/min PREOP IV 07/30/17 06:00 07/30/17 18:00 1/31/18 07:31 2.5 MLS/MIN Acetaminophen (Tylenol Tab) 1,000 mg PREOP PO 07/30/17 06:00 07/30/17 18:00 07/30/17 06:24 1,000 MG Celecoxib (CeleBREX CAP) 200 mg PREOP PO 07/30/17 06:00 07/30/17 18:00 07/30/17 06:23 200 MG Dexamethasone (Decadron Tab) 8 mg PREOP PO 07/30/17 06:00 07/30/17 18:00 07/30/17 06:23 8 MG Famotidine (Pepcid Tab) 20 mg PREOP PO 07/30/17 06:00 07/30/17 18:00 07/30/17 06:23 20 MG Gabapentin (Neurontin Cap) 600 mg PREOP PO 07/30/17 06:00 07/30/17 18:00 07/30/17 06:23 600 MG Metoclopramide HCl (Reglan Tab) 10 mg PREOP PO 07/30/17 06:00 07/30/17 18:00 07/30/17 06:24 10 MG Tranexamic Acid 1000 mg/Syringe 10 ml @ 1 mls/min TODAY@06,0630 IV 07/30/17 06:00 07/30/17 14:00 07/30/17 06:33 1 MLS/MIN Fentanyl Citrate (Fentanyl Inj) 25 mcg Q5M PRN IV 07/30/17 07:15 07/30/17 12:15 Ondansetron HCl (Zofran Inj) 4 mg ONE PRN IV 07/30/17 07:15 07/30/17 12:15 Ephedrine Sulfate (EpHEDrine SULFATE INJ) 5 mg Q5M PRN IV 07/30/17 07:15 07/30/17 12:15 Atropine Sulfate (Atropine Sulfate 0.1mg/ml Inj) 0.5 mg Q1M PRN IV 07/30/17 07:15 07/30/17 12:15 Simvastatin (Zocor Tab) 20 mg QPM PO 07/30/17 21:00 08/29/17 20:59 UNV Non-Formulary Medication (Tadalafil (Cialis)) 1 tab QAM PO 07/31/17 09:00 08/30/17 08:59 UNV Potassium Chloride/Dextrose/ Sod Cl 1,000 ml @ 100 mls/hr Q10H IV 07/30/17 09:41 07/31/17 09:40 UNV Cefazolin Sodium 2000 mg/Dextrose 60 ml @ 100 mls/hr Q8H IV 07/30/17 09:45 07/30/17 18:20 UNV Celecoxib (CeleBREX CAP) 200 mg BID PO 07/30/17 21:00 08/29/17 20:59 UNV Acetaminophen/ Hydrocodone Bitart ([place] 5/325 Tab) 1 TABLET FOR PAIN RATING... Q4H PRN PO 07/30/17 09:45 08/13/17 09:44 UNV Morphine Sulfate (MoRPHine SULFATE INJ) as needed Q2H PRN IV 07/30/17 09:45 08/13/17 09:44 UNV Acetaminophen (Tylenol Tab) 650 mg Q6H PRN PO 07/30/17 09:45 08/29/17 09:44 UNV Magnesium Hydroxide (Milk Of Magnesia Susp) 30 ml Q6H PRN PO 07/30/17 09:45 08/29/17 09:44 UNV Bisacodyl (Dulcolax Supp) 10 mg DAILY PRN [place] 07/30/17 09:45 08/29/17 09:44 UNV Sodium Biphosphate/ Sodium Phosphate (Fleet Enema) 132 ml DAILY PRN [place] 07/30/17 09:45 08/29/17 09:44 UNV Docusate Sodium (coLACE CAP) 100 mg BID PO 07/30/17 21:00 08/29/17 20:59 UNV Diphenhydramine HCl (Benadryl Cap) 25 mg Q8H PRN PO 07/30/17 09:45 08/29/17 09:44 UNV Zolpidem Tartrate (Ambien Tab) 5 mg HSZ PRN PO 07/30/17 09:45 08/29/17 09:44 UNV Multivitamins (Multivitamin Tab) 1 tab QAM PO 07/31/17 09:00 08/30/17 08:59 UNV Ondansetron HCl (Zofran Inj) 4 mg Q6H PRN IV 07/30/17 09:45 08/29/17 09:44 UNV Metoclopramide HCl (Reglan Inj) 10 mg Q6H PRN IV 07/30/17 09:45 08/29/17 09:44 UNV Pantoprazole Sodium (Protonix Tab) 40 mg QAM PO 07/31/17 09:00 08/30/17 08:59 UNV Aspirin (Ecotrin Tab) 81 mg BID PO 07/30/17 21:00 08/29/17 20:59 UNV Physical Exam Date Time Temp Pulse Resp B/P (MAP) Pulse Ox O2 Delivery O2 Flow Rate FiO2 07/30/17 11:08 66 16 130/79 (96) 96 2.0 07/30/17 10:40 36.8 70 16 132/71 (91) 95 Nasal Cannula 2.0 07/30/17 10:40 95 Nasal Cannula 2.0 07/30/17 10:40 Nasal Cannula 2.0 07/30/17 10:20 36.8 72 15 126/72 95 Nasal Cannula 2 07/30/17 10:10 72 16 126/70 94 Nasal Cannula 2 07/30/17 10:00 74 13 131/70 95 Nasal Cannula 2 07/30/17 09:50 76 14 126/67 98 Oxymask 10 07/30/17 09:40 37.3 76 16 113/65 96 Oxymask 10 07/30/17 05:51 36.5 73 20 161/84 95 Room Air General Appearance: WD/WN, no apparent distress Head: normocephalic, atraumatic Eyes: normal inspection, PERRL, EOMI, sclerae normal ENT: hearing grossly normal, pharynx normal, + pertinent finding (mucous membranes moist) Neck: supple, trachea midline Respiratory/Chest: chest non-tender, lungs clear, normal breath sounds, no respiratory distress, no accessory muscle use Cardiovascular: regular rate, rhythm, normal peripheral pulses Abdomen/GI: normal bowel sounds, non tender, soft Extremities/Musculoskelatal: normal capillary refill, + pertinent finding (RLE : right knee with surgical dressing in place. sensation to light touch intact, distal pulses intact bilateral extremities) Neurologic/Psych: alert, normal mood/affect, oriented x 3 Skin: normal color, warm/dry Assessment & Plan Pt post op day#0 S/P R TKA by Dr Solo -pain management per ortho -wound management per ortho -PT/OT as appropriate -DVT prophylaxis per ortho -incentive spirometry -monitor H&H for acute blood loss anemia PEARL Pt uses CPAP at home. He is denying use in hospital currently. Discussed with pt O2 HS may be needed, he expresses understanding HYPERLIPIDEMIA Lipid panel 05/16: total: 152, LDL: 72, HDL: 69, Triglycerides: 54 -continue simvastatin DVT PROPHYLAXIS -ASA 81mg BID per ortho DISPOSITION -admitted med surg -Full code -Follows with Dr Barrios for routine care Pt was seen with Dr Sims. See addendum Pt will be followed by Dr Tello for hospital course. ADDENDUM: This is a 56 year old male with a PMH of obesity, hyperlipidemia, PEARL on nocturnal CPAP - presents for a scheduled R knee surgery. Doing well, no pain currently, no nausea/vomiting. No other symptoms to note at this time. Plan: monitor labs, H/H, electrolytes continue Zocor can hold fish oils until discharge aspirin 81mg bid for DVT ppx does not want to use CPAP while here, can use O2 nocturnally Additional Copies To Irish Barrios D.O.
[2017-07-30] MEDS ORDERED: MoRPHine SULFATE 4 MG/ML 1 ML CARP\\VIAL IV PRN (12:00)
[2017-07-30] MEDS: D5W AND 1/2NSS + 20MEQ KCL 1,000 ML IV SCH ×2 (12:03→21:52)
--- NOTE | 2017-07-30 12:48 | OPERATIVE REPORT ---
DATE OF OPERATION: 07/30/2017 INDICATION FOR PROCEDURE: The patient is a 56-year-old male who presents with chronic progressive right knee osteoarthritis. He had bilateral knee osteoarthritis, previous successful left knee replacement in March. He is doing well with that. He now presents for a staged replacement of his right knee. Radiographs demonstrate he has a varus knee, [id number] in the medial compartment. PREOPERATIVE DIAGNOSIS: End-stage osteoarthritis of the right knee. POSTOPERATIVE DIAGNOSIS: Same. PROCEDURE: Right total knee arthroplasty. SURGEON: Dr. Noé Solo. ELECTROCHEMIST: SAM Severino. ANESTHESIA: Spinal adductor nerve block and Orthomix sedation. OPERATIVE PROCEDURE: The patient was taken to the operating room, anesthetized under anesthesia as dictated. Pneumatic tourniquet was placed about his obese right upper thigh. His right knee was examined. He had about a 10-degree flexion contracture and flexion to 125 degrees. He had a stiff knee. He had no instability. He had a moderate effusion. His right lower extremity was prepped and draped with ChloraPrep. The leg was elevated, exsanguinated with Esmarch bandage. Pneumatic tourniquet was raised to 350 mmHg because of his obesity. An anterior incision was made across his right knee in a longitudinal fashion. Skin was incised sharply. Subcutaneous flaps were elevated. He had very thickened scarred prepatellar bursa noted. We excised the scarred prepatellar bursa and bands of scarred bursa coursing across the patellar tendon. The incision was made then through the medial retinaculum and extended up into the mid third of the quadriceps tendon and then down to the medial tibial tubercle. Intraarticular findings demonstrated that he had tricompartmental osteophytes with primarily medial compartment OA, [id number] in the medial compartment. He did have some synovitis. Some thickened synovial tissue was resected in the suprapatellar pouch and the medial side of his knee. The meniscal remnants were resected. The infrapatellar fat pad was resected and some of the fat pad over the anterior femur for placement of the component in that area was resected and the lateral synovial bands were released. The cruciate ligaments were excised and the menisci were excised. We had a tight medial compartment and we had to do medial and posteromedial releases to balance the ligaments and we had to also pie crust the anterior band of the MCL. The [employer] Journey 2.0 total knee arthroplasty system was used using [facility] templating. The femur was exposed and the custom femoral cutting block was pinned in position and a distal femoral cut was made. Because of the tight knee, we had to address the patella first so the knee was extended and a subperiosteal peel lateral release was performed around the patella. Patella width was measured and width was reproduced using a freehand cut technique and a 35-mm dome patellar component. Drill holes were made and excess lateral facet was beveled off to prevent any impingement and all bone spurs were removed about the patella. Then retractors were placed to better expose the femur. A size 6, 5-in-1 cutting block for the Journey 2.0 knee was placed. The anterior, posterior and chamfer cuts were made. Then the tibia was subluxed and the custom tibial cutting block was pinned in position and the proximal tibial cut was made. The ligaments were balanced in extension and flexion. The tibia was downsized to 5 as we could get better external rotation with the alignment of the tibial tubercle with this trial, which was pinned in position and then the punch for the stem was used and then the 6 femoral trial was inserted, centered, and the notch cutting devices were used and the collet was placed and a 12 poly insert gave balanced ligaments through full range of motion. The patella tracked centrally. The trials were removed. The anesthetic cocktail was injected per protocol. Then the knee was copiously irrigated with pulsatile lavage antibiotic solution and bacitracin. The final components were cemented with Simplex G cement. While the cement was curing, we used Betadine soak per protocol. Then this was irrigated out with antibiotic solution and bacitracin. Two drains were brought out laterally connected to Hemovac. The quadriceps tendon and medial retinaculum were closed with interrupted [id number] #1 Vicryl sutures. The knee was taken through a full range of motion and the repair was secure. The patient had full extension and flexion to 130 degrees without difficulty and a stable knee through full motion. The subcutaneous tissues were injected with more of the Orthomix anesthetic and then the subcutaneous tissue closed with interrupted 2-0 Vicryl, skin was closed with franca. Silverlon sterile dressing was placed and tourniquet was let down. The patient had good capillary refill to the extremity and tolerated the procedure well. SAM Severino, was my first breaker feeder. He functioned as first breaker feeder through the entire procedure. He assisted in patient positioning, prepping, draping, leg positioning, soft tissue retraction, instrument management and assisted in the subcutaneous skin closure and would participate in postoperative care of the patient. I attest to the content of the Intraoperative Record and any orders documented therein. Any exception s are noted below.
[2017-07-30] MEDS: CEFAZOLIN IV 2,000 MG in SYRINGE 5 ML IV SCH ×2 (16:26→23:25)
[2017-07-30] MEDS: HYDROCODONE/ACETAMOPHEN 5/325MG TAB PO PRN (18:56)
[2017-07-30] MEDS: SIMVASTATIN 20 MG TAB PO SCH (20:47)
[2017-07-30] MEDS: ASPIRIN 81 MG ECTAB PO SCH (20:48)
[2017-07-30] MEDS: DOCUSATE SODIUM 100 MG CAP PO SCH (20:48)
[2017-07-30] MEDS: CeleBREX 200 MG CAP PO SCH (20:49)
[2017-07-30] MEDS: ZOLPIDEM TARTRATE 5 MG TAB PO PRN (23:29)
[2017-07-31 03:56] VITALS: BP 126/75; PULSE 69; TEMP 36.4; O2SAT 96
[2017-07-31 06:09] LABS: HEMATOCRIT 36.1 % (42-52); HEMOGLOBIN 12.3 g/dL (14.0-18.0); MEAN CELL VOLUME 87.2 fL (80-100); MEAN CORPUSCULAR HEMOGLOBIN 29.7 pg (25-34); MEAN CORPUSCULAR HGB CONC 34.1 g/dl (32-36); MEAN PLATELET VOLUME 9.1 fL (7.4-10.4); PLATELET COUNT 192 K/uL (130-400); RED CELL DISTRIBUTION WIDTH CV 14.1 % (11.5-14.5); RED CELL DISTRIBUTION WIDTH SD 44.4 fL (36.4-46.3); WHITE BLOOD COUNT 14.44 K/uL (4.8-10.8)
[2017-07-31 06:42] LABS: CREATININE 0.81 mg/dl (0.60-1.40); POTASSIUM 4.3 mmol/L (3.5-5.1)
[2017-07-31 07:48] VITALS: BP 140/74; PULSE 67; TEMP 36.3; O2SAT 96
--- NOTE | 2017-07-31 07:50 | Orthopedic Progress Note ---
Orthopedic Progress Note Date of Service Jul 31, 2017. Subjective Post OP Day: 1 Reports: feeling well, pain controlled w PO medications, Denies: complaints, chest pain, SOB, nausea / vomiting, light headedness, calf pain Objective calves soft nontender, N/V intact, capillary refill less than 2 sec., dressing C /D/I, A&O x3, toes mobile Date Time Temp Pulse Resp B/P (MAP) Pulse Ox O2 Delivery O2 Flow Rate FiO2 07/31/17 03:56 36.4 69 16 126/75 (92) 96 Room Air 07/30/17 23:30 Room Air 07/30/17 22:56 36.4 70 18 131/74 (93) 95 Room Air 07/30/17 18:38 36.6 99 18 145/76 (99) 94 Room Air 07/30/17 15:16 36.5 87 18 158/82 (107) 94 Room Air 07/30/17 15:10 Room Air 07/30/17 13:49 86 18 133/80 (97) 93 Room Air 07/30/17 12:40 69 18 133/72 (92) 94 Room Air 07/30/17 11:40 62 16 144/90 (108) 94 2.0 07/30/17 11:08 66 16 130/79 (96) 96 2.0 07/30/17 10:40 36.8 70 16 132/71 (91) 95 Nasal Cannula 2.0 07/30/17 10:40 95 Nasal Cannula 2.0 07/30/17 10:40 Nasal Cannula 2.0 07/30/17 10:20 36.8 72 15 126/72 95 Nasal Cannula 2 07/30/17 10:10 72 16 126/70 94 Nasal Cannula 2 07/30/17 10:00 74 13 131/70 95 Nasal Cannula 2 07/30/17 09:50 76 14 126/67 98 Oxymask 10 07/30/17 09:40 37.3 76 16 113/65 96 Oxymask 10 Laboratory Results 24 Hours: Test 07/31/17 05:10 Hematocrit 36.1 % Hemoglobin 12.3 g/dL Assessment & Plan Assessment: POD #1, Right TKA Plan: PT/ OT DVT proph- ASA D/C planning- Home w OPPT As per medicine Inhouse Planning Pain Management: Celebrex, [place], Morphine, PO Tylenol DVT Prophylaxis: TEDs, SCDs, ASA Discharge Planning Discharge Planning: home with oppt Pain Management: [place], PO Tylenol DVT Prophylaxis: TEDs, ASA Therapy: Physical Therapy, Occupational Therapy
[2017-07-31] MEDS ORDERED: TADALAFIL PO SCH (09:00)
[2017-07-31] MEDS: CeleBREX 200 MG CAP PO SCH ×2 (09:17→20:32)
[2017-07-31] MEDS: DOCUSATE SODIUM 100 MG CAP PO SCH ×2 (09:17→20:32)
[2017-07-31] MEDS: MULTIVITAMIN TAB PO SCH (09:18)
[2017-07-31] MEDS: PANTOprazole SOD 40 MG TAB PO SCH (09:18)
[2017-07-31] MEDS: ASPIRIN 81 MG ECTAB PO SCH ×2 (09:18→20:32)
--- NOTE | 2017-07-31 09:40 | Anesthesiology Progress Note ---
Anesthesia Post Op Note Date & Time Jul 31, 2017 at 09:39 Vital Signs Pain Intensity: 0.0 Vital Signs Past 12 Hours Date Time Temp Pulse Resp B/P (MAP) Pulse Ox O2 Delivery O2 Flow Rate FiO2 07/31/17 07:48 36.3 67 17 140/74 (96) 96 Room Air 07/31/17 07:15 Room Air 07/31/17 03:56 36.4 69 16 126/75 (92) 96 Room Air 07/30/17 23:30 Room Air 07/30/17 22:56 36.4 70 18 131/74 (93) 95 Room Air Notes Mental Status: alert / awake / arousable, participated in evaluation Pt Amnestic to Procedure: Yes Nausea / Vomiting: adequately controlled Pain: adequately controlled Airway Patency, RR, SpO2: stable & adequate BP & HR: stable & adequate Hydration State: stable & adequate Neuraxial Anesthesia: sensory block resolved Anesthetic Complications: no major complications apparent
[2017-07-31 10:56] VITALS: BP 155/79; PULSE 75; O2SAT 99
[2017-07-31] MEDS: HYDROCODONE/ACETAMOPHEN 5/325MG TAB PO PRN ×3 (13:12→22:29)
[2017-07-31 15:25] VITALS: BP 139/79; PULSE 70; TEMP 36.6; O2SAT 97
--- NOTE | 2017-07-31 18:27 | Progress Note ---
Internal Med Progress Note Date of Service: Jul 31, 2017. Provider Documentation: SUBJECTIVE: Seen and examined at bedside Right leg pain is controlled Denies any CP, SOB, dizziness, nausea Had BM today No other complaints OBJECTIVE: Vital Signs-as noted below Physical Exam: General Appearance:Moderately built and nourished, no apparent distress Head: normocephalic, Atraumatic Eyes: normal inspection, EOMI, PERRL Neck: supple, Trachea midline Respiratory/Chest: Normal breath sounds, CTA Cardiovascular: S1, S2, No murmur Abdomen/GI:Soft, Non tender, Bowel sounds present Extremities/Musculoskelatal:normal inspection, no edema, RLE in Surgical Bandage, +Drain Neurologic/Psych:AAOX3, grossly no focal neurological deficits Skin: normal color, warm Lab data as noted below. ASSESSMENT & PLAN: S/P R TKA POD Day # 1 Pain control Continue wound care PT/OT On ASA BID for DVT Px Monitor H&H for post op anemia [place]ARL CPAP QHS Can use Nocturnal Oxygen as patient prefers not to use CPAP while hospitalized Hyperlipidemia: continue statin DVT Px: ASA 81mg BID Disposition: Per Primary Team Vital Signs: Date Time Temp Pulse Resp B/P (MAP) Pulse Ox O2 Delivery O2 Flow Rate FiO2 07/31/17 15:25 36.6 70 18 139/79 (99) 97 Room Air 07/31/17 15:00 Room Air 07/31/17 10:56 75 20 155/79 (104) 99 Room Air 07/31/17 07:48 36.3 67 17 140/74 (96) 96 Room Air 07/31/17 07:15 Room Air 07/31/17 03:56 36.4 69 16 126/75 (92) 96 Room Air 07/30/17 23:30 Room Air 07/30/17 22:56 36.4 70 18 131/74 (93) 95 Room Air Lab Results: Results Past 24 Hours Test 07/31/17 05:10 Range/Units White Blood Count 14.44 4.8-10.8 K/uL Red Blood Count 4.14 4.7-6.1 M/uL Hemoglobin 12.3 14.0-18.0 g/dL Hematocrit 36.1 42-52 % Mean Corpuscular Volume 87.2 80-100 fL Mean Corpuscular Hemoglobin 29.7 25-34 pg Mean Corpuscular Hemoglobin Concent 34.1 32-36 g/dl RDW Standard Deviation 44.4 36.4-46.3 fL RDW Coefficient of Variation 14.1 11.5-14.5 % Platelet Count 192 130-400 K/uL Mean Platelet Volume 9.1 7.4-10.4 fL Sodium Level 136 136-145 mmol/L Potassium Level 4.3 3.5-5.1 mmol/L Chloride Level 105 98-107 mmol/L Carbon Dioxide Level 25 21-32 mmol/L Anion Gap 6.0 3-11 mmol/L Blood Urea Nitrogen 9 7-18 mg/dl Creatinine 0.81 0.60-1.40 mg/dl Est Creatinine Clear Calc Drug Dose 117.8 ml/min Estimated GFR () 114.3 Estimated GFR (Non- 98.7 BUN/Creatinine Ratio 11.2 10-20 Random Glucose 164 70-99 mg/dl Calcium Level 8.0 8.5-10.1 mg/dl
[2017-07-31] MEDS: SIMVASTATIN 20 MG TAB PO SCH (20:32)
[2017-07-31] MEDS: ZOLPIDEM TARTRATE 5 MG TAB PO PRN (22:29)
[2017-07-31 22:53] VITALS: BP 122/70; PULSE 67; TEMP 36.7; O2SAT 98
[2017-08-01 06:18] VITALS: BP 122/73; PULSE 70; TEMP 36.6; O2SAT 99
[2017-08-01 07:02] LABS: HEMATOCRIT 35.1 % (42-52); HEMOGLOBIN 11.8 g/dL (14.0-18.0); MEAN CELL VOLUME 87.8 fL (80-100); MEAN CORPUSCULAR HEMOGLOBIN 29.5 pg (25-34); MEAN CORPUSCULAR HGB CONC 33.6 g/dl (32-36); PLATELET COUNT 179 K/uL (130-400); RED CELL DISTRIBUTION WIDTH CV 14.4 % (11.5-14.5); RED CELL DISTRIBUTION WIDTH SD 46.2 fL (36.4-46.3); WHITE BLOOD COUNT 6.66 K/uL (4.8-10.8)
[2017-08-01 07:30] LABS: CREATININE 0.82 mg/dl (0.60-1.40); POTASSIUM 3.8 mmol/L (3.5-5.1)
[2017-08-01 07:31] LABS: CALCIUM 8.3 mg/dl (8.5-10.1)
--- NOTE | 2017-08-01 07:47 | Orthopedic Progress Note ---
Orthopedic Progress Note Date of Service Aug 01, 2017. Subjective Post OP Day: 2 Reports: feeling well, pain controlled w PO medications, Denies: complaints, chest pain, SOB, nausea / vomiting, light headedness, calf pain Objective calves soft nontender, N/V intact, capillary refill less than 2 sec., incision C /D/I, A&O x3, toes mobile Patient has mod swelling and bruising with benign superficial skin tears around silverlon edges No erythema or drainage, no signs of infection. Date Time Temp Pulse Resp B/P (MAP) Pulse Ox O2 Delivery O2 Flow Rate FiO2 08/01/17 06:18 36.6 70 16 122/73 (89) 99 Room Air 07/31/17 23:15 Room Air 07/31/17 22:53 36.7 67 16 122/70 (87) 98 Room Air 07/31/17 15:25 36.6 70 18 139/79 (99) 97 Room Air 07/31/17 15:00 Room Air 07/31/17 10:56 75 20 155/79 (104) 99 Room Air 07/31/17 07:48 36.3 67 17 140/74 (96) 96 Room Air Laboratory Results 24 Hours: Test 08/01/17 06:22 Hematocrit 35.1 % Hemoglobin 11.8 g/dL Assessment & Plan Assessment: POD #2, Right TKA Plan: PT/ OT DVT proph- ASA D/C planning- Home w OPPT today As per medicine D/C silverlon, use ABD's and paper tape, vaseline gauze on skin tears. Inhouse Planning Pain Management: Celebrex, [place], Morphine, PO Tylenol DVT Prophylaxis: TEDs, SCDs, ASA Discharge Planning Discharge Planning: home with oppt Pain Management: [place], PO Tylenol DVT Prophylaxis: TEDs, ASA Therapy: Physical Therapy, Occupational Therapy
[2017-08-01] MEDS ORDERED: ASPEC81 PO (07:49)
[2017-08-01] MEDS ORDERED: HYDR-5688 PO (07:49)
[2017-08-01] MEDS ORDERED: CLB200 PO (07:49)
--- NOTE | 2017-08-01 07:51 | Discharge Instructions ---
Discharge Instructions Date of Service Aug 01, 2017. Admission Reason for Admission: Right Knee Degenerative Joint Disease Discharge Discharge Diagnosis / Problem: Right TKA Discharge Goals Goal(s): Improve function Activity Recommendations Activity Limitations: as noted below . Instructions / Follow-Up Instructions / Follow-Up ACTIVITY RECOMMENDATIONS: SELF CARE INSTRUCTIONS AFTER TOTAL KNEE REPLACEMENT A. You may need to continue a physical therapy program after discharge from the hospital. There are several options available to you. Your doctor will assist you in selecting the best one for you. 1. An out-patient facility 2 to 3 times a week for therapy or home therapy. 2. Continue working on all exercises taught to you in the hospital. Your goals should be to increase bending of your knee to 90 degrees and beyond and to fully straighten your knee. B. You may progress at your own pace from walking with a walker or crutches to a cane; then to no assistive devices. C. Make walking a part of your daily routine. Be up as much as comfortable with rest periods throughout the day. Rest with leg elevation is very important. Use the ice wrap frequently for the first 3-4 weeks. D. There are no restrictions on activities. You may ride in a car, shop, participate in cleaner housekeeping and all social activities. E. Wear the long elastic stockings (GILLIAN hose) 20 hours a day for 2 weeks after surgery. They can be removed several times a day for laundering and for a bath. F. You may shower, no tub baths until cleared by your doctor. SPECIAL CARE INSTRUCTIONS: VERY IMPORTANT TO READ AND REVIEW A. There are a few signs you need to watch for after you are home. Call [facility] if you notice any of the followin. Increased severe knee pain. Some pain is expected especially when you exercise. 2. Increased swelling in your leg or knee; pain or swelling of the calf muscle in either lower leg. 3. Any fluid drainage from the incision. 4. Shortness of breath or chest pain. B. Please call [facility] at if you have any concerns or questions about your operation or recovery. The doctor or his nurse will return your call promptly. C. You must take antibiotics before dental work, bladder, bowel or other surgery. Your doctor will provide you with a permanent care to carry describing this precaution. IMPORTANT: * REMEMBER TO TAKE ASPIRIN, 81 MG, TWICE DAILY FOR 4 WEEKS UNLESS OTHERWISE DIRECTED. THIS IS YOUR BLOOD THINNER. * HIGH RISK PATIENTS MAY BE PRESCRIBED A STRONGER BLOOD THINNER. THIS WILL BE PROVIDED AT DISCHARGE. * CALL IF INCREASED PAIN, REDNESS, DRAINAGE OR FEVER GREATER THAT 101. * WEAR GILLIAN HOSE 20 HOURS PER DAY FOR 2 WEEKS. * YOU MAY HAVE A LARGE BAND-AID LIKE DRESSING (SILVERON). THIS WILL REMAIN ON YOUR INCISION FOR 7 DAYS, THEN CAN BE REMOVED. IF INCISION IS LEAKING THROUGH DRESSING, CALL THE OFFICE . FOLLOW UP VISIT: If appointment is not already scheduled: Please call [facility] to make a follow-up appointment for 2 weeks after your surgery at . PLEASE MAKE APPOINTMENT ONE WEEK 08/08/17 FOR SKIN CHECK. Current Hospital Diet Patient's current hospital diet: Regular Diet Discharge Diet Recommended Diet: Regular Diet Procedures Procedures Performed: Right Total Knee Arthroplasty, Cemented Pending Studies Studies pending at discharge: no Laboratory Results Hemoglobin A1c Test 07/01/17 14:42 Range/Units Estimated Average Glucose 111 mg/dl Hemoglobin A1c 5.5 4.5-5.6 % Medical Emergencies . Who to Call and When: Medical Emergencies: If at any time you feel your situation is an emergency, please call [phone] immediately. . Non-Emergent Contact Non-Emergency issues call your: Primary Care Provider . "Provider Documentation" section prepared by Hardeep Squires. . VTE Core Measure Inpt VTE Proph given/why not?: Other Anticoagulation (ASA), T.E.D. Stockings, SCD's [place] Drug Monitoring Program Search Results: patient reviewed within database, no issues identified
[2017-08-01 08:01] VITALS: BP 142/70; PULSE 76; TEMP 36.7; O2SAT 96
[2017-08-01] MEDS: ASPIRIN 81 MG ECTAB PO SCH (08:18)
[2017-08-01] MEDS: CeleBREX 200 MG CAP PO SCH (08:18)
[2017-08-01] MEDS: DOCUSATE SODIUM 100 MG CAP PO SCH (08:18)
[2017-08-01] MEDS: PANTOprazole SOD 40 MG TAB PO SCH (08:19)
[2017-08-01] MEDS: MULTIVITAMIN TAB PO SCH (08:19)
[2017-08-01] MEDS: HYDROCODONE/ACETAMOPHEN 5/325MG TAB PO PRN (09:26)
[2017-08-01 10:20] VITALS: BP 142/70; PULSE 76; TEMP 36.7; O2SAT 96
== END 2017-08-01 11:00 | disposition home or self-care (01) | DRG 470 ==
LOC: C.ACU 05:28 → C.3E 09:47 → ENRESERV 10:18
PROVIDERS: ADMIT Orthopaedic Surgery Sports Medicine; ATTEND Orthopaedic Surgery Sports Medicine
PROC: 0SRC0J9 Replacement of Right Knee Joint with Synthetic Substitute, Cemented, Open Approach (ICD-10-PCS; principal; 2017-07-30 07:30)
DX: M17.11 Unilateral primary osteoarthritis, right knee (principal); E66.9 Obesity, unspecified; G47.33 Obstructive sleep apnea (adult) (pediatric); I35.1 Nonrheumatic aortic (valve) insufficiency; N40.0 Benign prostatic hyperplasia without lower urinary tract symptoms; E78.5 Hyperlipidemia, unspecified; Z68.39 Body mass index [BMI] 39.0-39.9, adult; Z79.899 Other long term (current) drug therapy